=== PATIENT | male | born 1990 | race Caucasian/White ===

== ENCOUNTER 2021-07-22 12:17 | Emergency (ER) | payer SELFPAY ==
[2021-07-22] MEDS ORDERED: Ketorolac 60 MG/2 ML SDV IM ONE (15:36)
[2021-07-22 16:51] LABS: BLOOD UREA NITROGEN,BUN 17 mg/dL (7.0-18.0); CARBON DIOXIDE,CO2 26.1 mmol/L (21.0-32.0); CHLORIDE,CL 101 mmol/L (98-107); GLUCOSE RANDOM 110 mg/dL (74-106); SODIUM,NA 139 mmol/L (136-148)
== END 2021-07-22 17:25 | disposition home or self-care (01) ==
LOC: MW.ED 12:17
DX: L03.114 Cellulitis of left upper limb (principal); L02.512 Cutaneous abscess of left hand; Z86.16 Personal history of COVID-19
CPT/HCPCS: 36415; 73120; 80053; 85025; 96372; 99283; J1885